=== PATIENT | male | born 1970 | race Caucasian/White ===

== ENCOUNTER 2022-11-10 10:10 | Outpatient (CLI) | payer BC, SELFPAY ==
[2022-11-10 10:16] VITALS: BP 150/91; PULSE 68; RESP 18; O2SAT 98
[2022-11-10] MEDS: TETRACAINE 0.5% OPHTH 1 DROP EYE-RIGHT ×3 (10:20→10:48)
[2022-11-10] MEDS: BRIMONIDINE TARTRATE 0.2% OPHTH 1 DROP EYE-RIGHT ×2 (10:23→10:55)
--- NOTE | 2022-11-10 11:12 | W.PM.OPTPROC ---
Procedure Note Date of procedure: 11/10/22 Will [facility] bill your pro fee for this procedure?: Yes Procedure Description: SURGEON: Tiffany Tomlinson MD PREOPERATIVE DIAGNOSIS: Posterior capsular opacity, right eye POSTOPERATIVE DIAGNOSIS: Posterior capsular opacity, right eye PROCEDURE: YAG laser capsulotomy, right eye ANESTHESIA: Topical. ESTIMATED BLOOD LOSS: None PATHOLOGY SPECIMEN: None COMPLICATIONS: None INDICATIONS: See consult note for details. The risks, benefits and alternatives of the procedure were explained to the patient, who elected to proceed and signed informed consent to do so. PROCEDURE: The patient was brought to the pre-holding area where the right eye was identified as the operative eye. I placed my initials above this eye. The patient received 2 sets of 1 drop of 0.5% tetracaine and 1 drop of 1% tropicamide. They also received 1 drop of 0.2% brimonidine. They received 1 drop of 0.5% tetracaine immediately prior to bringing them back for the procedure. The patient was then brought to the procedure room where the right eye was again identified as the operative eye. A YAG Chan capsulotomy lens was placed on the eye. The laser was administered using a total number of 11 shots with an energy of 2.4 mJ per shot for a total energy of 26 mJ. The patient tolerated the procedure well. DISPOSITION: The patient was taken back to the pre-holding area and given 1 drop of 0.2% brimonidine in the right eye. They were discharged to home in stable condition. The patient was instructed to call me or go to the emergency department with any sudden change, including dramatic loss of vision, severe pain in the eye or eyebrow region, nausea, or vomiting. The patient was instructed to use the 0.2% brimonidine 1 drop 2 times a day in the right eye for 1 week. The patient will follow up in the clinic in 1-2 weeks. Surgeon: Tiffany Tomlinson MD
== END 2022-11-10 10:55 | disposition home or self-care (01) ==
LOC: EYE PRC 10:12
PROVIDERS: Visit Provider Ophthalmology
DX: H26.9 Unspecified cataract (principal)
CPT/HCPCS: 66821; A9270

== ENCOUNTER 2024-01-25 07:26 | Day surgery (SDC) | payer BC, SELFPAY ==
[2024-01-25] MEDS: TETRACAINE 0.5% OPHTH 1 DROP EYE-LEFT ×2 (07:35→07:40)
[2024-01-25] MEDS: KETOROLAC OPHTH 0.5% 1 DROP EYE-LEFT ×2 (07:35→07:40)
[2024-01-25 07:55] VITALS: BMI 30.1
[2024-01-25 07:57] VITALS: BP 143/94; PULSE 72; RESP 16; TEMP 36.8; O2SAT 98
[2024-01-25] MEDS: SODIUM CHLORIDE 0.9 % (FLUSH) 10 ML SYRINGE IVF (07:59)
--- NOTE | 2024-01-25 08:02 | SUR.PREOP ---
The eye drops brought by the patient (Ketorolac, Prednisolone, and Ofloxacin) are examined and I have determined they are labeled by the patient's pharmacy for this patient as prescribed by the surgeon. The bottles are intact, recently obtained and appear to be correct.[email or web address]
--- NOTE | 2024-01-25 08:12 | W.ANESCHARGE ---
Anesthesia Charges Start Date/Time Anesthesia Start Date: 01/25/24 Anesthesia Start Time: 08:41 Stop Date/Time Anesthesia Stop Date: 01/25/24 Anesthesia Stop Time: 09:10
[2024-01-25] MEDS: TETRACAINE 0.5% OPHTH 2 DROP EYE-LEFT (08:45)
[2024-01-25] MEDS: BALANCED SALT IRRIG SOLN 15 ML EYE-LEFT (08:48)
--- NOTE | 2024-01-25 08:59 | W.ANESCHARGE ---
Anesthesia Charges Start Date/Time Anesthesia Start Date: 01/25/24 Anesthesia Start Time: 08:41 Stop Date/Time Anesthesia Stop Date: 01/25/24 Anesthesia Stop Time: 09:10
[2024-01-25 09:06] VITALS: BP 139/93; PULSE 70; RESP 16; TEMP 37.1; O2SAT 95
--- NOTE | 2024-01-25 09:13 | P.OPTPRC_ITS ---
Procedure Note Date of procedure: 01/25/24 Will [facility] bill your pro fee for this procedure?: Yes Procedure Description: SURGEON: Tiffany Tomlinson MD PREOPERATIVE DIAGNOSIS: Nuclear sclerotic cataract, left eye. POSTOPERATIVE DIAGNOSIS: Nuclear sclerotic cataract, left eye. NAME OF OPERATION: Phacoemulsification of cataract with posterior chamber intraocular lens implantation in the left eye. ANESTHESIA: Topical. ESTIMATED BLOOD LOSS: Less than 2 cc. COMPLICATIONS: None. PATHOLOGY SPECIMEN: None. INDICATIONS: See consult note for details. The risks, benefits and alternatives of the procedure were explained to the patient, who elected to proceed and signed informed consent to do so. PROCEDURE: The patient was brought to the pre-holding area where the left eye was identified as the operative eye. I placed my initials above this eye. The patient received eye drops consisting of 0.5% tetracaine, 1% tropicamide, 10% phenylephrine, and 0.5% ketorolac. The patient was then brought to the operating room where the left eye was again identified as the operative eye. The eye was prepped with Betadine and draped in the usual sterile ophthalmic fashion. A #15 super-sharp blade was used to create a paracentesis site. 1% non-preserved intracameral lidocaine was injected into the anterior chamber. Endocoat was injected into the anterior chamber. A 2.4 mm keratome was used to create a three-plane self-sealing incision 1 mm anterior to the temporal limbus. A cystotome was used to create an anterior capsular leaflet. The Utrata forceps were used to extend this to form a continuous curvilinear capsulorrhexis. Hydrodissection was performed. The cataract was removed with phacoemulsification using the [id number] technique. The irrigation and aspiration tip was used to remove the remaining cortex. Healon was injected into the capsular bag. An NEGRO ZCB00 intraocular lens of 18.5 diopters was injected into the capsular bag. The irrigation and aspiration tip was used to remove the remaining viscoelastic. Balanced salt solution on a cannula was used to hydrate the wound, and the wound was found to be watertight. The pupil was noted to be round. DISPOSITION: The patient was taken to the recovery room and discharged to home in stable condition. The patient was instructed to call me or go to the emergency department with any sudden change, including dramatic loss of vision, severe pain in the eye or eyebrow region, nausea, or vomiting. The patient will follow up in the clinic tomorrow morning.
== END 2024-01-25 09:34 | disposition home or self-care (01) ==
LOC: OR 07:27
PROVIDERS: PCP Family Medicine; Visit Provider Ophthalmology
PROC: (CPT 66984; principal; 2024-01-25 07:30)
DX: H25.12 Age-related nuclear cataract, left eye (principal)
CPT/HCPCS: 66984; 00142; A9270; J2250; J3010; V2632